=== PATIENT | male | born 1965 | race Caucasian/White ===

== ENCOUNTER 2018-05-07 17:41 | Emergency (ER) | payer BC ==
[~2018-05-07] VITALS: Ht 162.5 cm; Wt 54.4 kg
[2018-05-07 18:22] LABS: BILIRUBIN NEGATIVE (NEGATIVE); BLOOD NEGATIVE (NEGATIVE); CLARITY CLEAR (CLEAR); COLOR YELLOW (YELLOW); GLUCOSE NEGATIVE (NEGATIVE); KETONE TRACE (NEGATIVE); LEUKO ESTERASE NEGATIVE (NEGATIVE); NITRITE NEGATIVE (NEGATIVE)
[2018-05-07] MEDS ORDERED: FLAGYL500 MG PO (18:25)
[2018-05-07 18:28] LABS: BACTERIA TRACE; RBC 0-2 rbc/hpf (0-2)
== END 2018-05-07 18:59 ==
LOC: ED 17:41
PROVIDERS: Physician Assistant
DX: Z20.2 Contact with and (suspected) exposure to infections with a predominantly sexual mode of transmission (principal)